=== PATIENT | male | born 1940 | race Two or more races ===

== ENCOUNTER 2016-11-25 11:13 | Emergency (ER) | payer MEDICARE, OTHER ==
[~2016-11-25] VITALS: Ht 160 cm; Wt 59.0 kg
[~2016-11-25 11:13] MED LIST: ACYCLOVIR800 MG ORAL; GABAPENTIN300 MG ORAL; TYLENOL EXTRA500 MG ORAL
[2016-11-25] MEDS ORDERED: COLACE100 MG ORAL (12:34)
[2016-11-25] MEDS ORDERED: PERCOCET 5-3251 EACH ORAL (12:34)
[2016-11-25] MEDS ORDERED: Oxycodone/Acetaminophen 5-325 ORAL ONE (12:45)
[2016-11-25 12:54] VITALS: BP 108/65
[2016-11-25 13:20] VITALS: BP 108/65
--- NOTE | 2016-11-26 14:18 | Emergency Room Report ---
History of Present Illness General Chief Complaint: Lower Back Pain or Injury Source: Patient Present Illness HPI Patient is a 76-year-old male who presented after having increased pain to his right flank. Patient had recent fall. Patient prior history of cancer. He had not been taking any medications recently. Pain had worsened with movement or deep breath. The patient reported falling onto the right side. Allergies: Coded Allergies: CODEINE (Verified Allergy, Unknown, 08/21/16) Patient History Past Medical History: see triage record Reviewed Nursing Documentation: PMH: Agreed, PSxH: Agreed Nursing Documentation-PMH Past Medical History: No History, Except For Hx Hypertension: Yes Hx Cancer: Yes - lymphoma Review of Systems All Other Systems: negative except mentioned in HPI Physical Exam Vital Signs Date Time Temp Pulse Resp B/P Pulse Ox O2 Delivery O2 Flow Rate FiO2 11/25/16 11:22 98.1 76 18 108/65 97 Room Air Sp02 EP Interpretation: reviewed, normal General Appearance: normal inspection, well appearing, no apparent distress, alert, GCS 15 Head: atraumatic ENT: normal ENT inspection, hearing grossly normal, normal voice Neck: normal inspection, full range of motion, supple, no bony tend Respiratory: normal inspection, lungs clear, normal breath sounds, no respiratory distress, no retraction, no wheezing, other - right flank tenderness Cardiovascular #1: regular rate, rhythm, no edema Gastrointestinal: normal inspection, normal bowel sounds, non tender, soft, no guarding, no hernia Genitourinary: no CVA tenderness Musculoskeletal: back normal, normal range of motion Neurologic: normal inspection, alert, responsive, speech normal Psychiatric: normal inspection, judgement/insight normal, mood/affect normal Skin: normal color, no rash, other - bruising to right flank Medical Decision Making Diagnostic Impression: Primary Impression: Closed rib fracture ER Course Patient presented for low back pain.Differential diagnosis included but was not limited to herniated disc, cauda equina syndrome, abdominal aortic aneurysm, perforated ulcer, spinal epidural abscess, spinal stenosis, lumbar fracture, metastatic lesion, pyelonephritis, rib fracture. Patient was given oral Percocet in emergency department. CT of the abdomen pelvis read by radiology showed a right rib fracture without evident pneumothorax or hemothorax. The patient was offered admission and he declined stated he wanted to go home. Patient was given prescription for Percocet. The patient is advised to follow up with primary care doctor in 1-2 days. Patient is advised to return if any worsening condition or if any changes in status that are concerning. Last Vital Signs Date Time Temp Pulse Resp B/P Pulse Ox O2 Delivery O2 Flow Rate FiO2 11/25/16 13:24 98.1 11/25/16 13:20 18 108/65 97 Room Air 11/25/16 11:22 76 Status: improved Disposition: HOME, SELF-CARE Condition: Stable Scripts Docusate Sodium* (COLACE*) 100 Mg Capsule 100 MG ORAL TWICE A DAY, #20 CAP Prov: Nate Harman 11/25/16 Oxycodone/Acetaminophen 5-325* (PERCOCET 5-325 MG TABLET*) 1 Each Tablet 1 TAB ORAL Q6H Y for For Pain, #20 TAB Prov: Nate Harman 11/25/16 Patient Instructions: Rib Fracture Nate Harman Nov 26, 2016 14:18
--- NOTE | 2016-12-14 11:24 | Diagnostic Imaging Report ---
Indication: Fall, right flank pain. History of lymphoma Technique: Spiral acquisitions obtained through the abdomen and pelvis. No oral contrast utilized, per emergency room physician request No IV contrast utilized, per referring physician request.. Multiplanar reconstructions were generated. Total dose length product 462 mGycm. CTDIvol(s) 10 mGy Comparison: None Findings: Displaced fracture of the posterior right 10th rib. The visualized portions of the lung show no evidence of pneumothorax. There is a mild superior endplate compression deformity of the L3 vertebral body. There is an old healed fracture deformity of the left 10th rib. The remainder of the bones are unremarkable. No significant subcutaneous contusion demonstrated. Lack of IV contrast in the setting of trauma severely limits evaluation of the solid organs. The liver, gallbladder, bile ducts, pancreas, spleen, adrenals, kidneys are grossly unremarkable. There is minimal nonspecific bilateral perinephric fat stranding. There is asymmetric lack of renal sinus fat on the right compared to the left. No pelvic mass or adenopathy. No retroperitoneal or mesenteric mass or adenopathy. There is occasional colonic diverticulosis. No evidence of diverticulitis. The appendix is normal except for containing an appendicolith. No small bowel distention. No free or loculated intraperitoneal air or fluid. The distal esophagus, stomach, duodenum are unremarkable. Impression: Positive for acute right 10th rib fracture. No underlying pneumothorax Age indeterminate minimal L2 superior endplate compression fracture deformity. Consider MRI for further evaluation if this is clinically relevant Exam of the solid organs is limited in the absence IV contrast. No definite acute solid organ trauma. Nonspecific bilateral perinephric fat stranding Normal colonic diverticulosis. No evidence of diverticulitis The CT scanner at [facility] is accredited by the [employer] and the scans are performed using protocols designed to limit radiation exposure to as low as reasonably achievable to attain images of sufficient resolution adequate for diagnostic evaluation.
== END 2016-11-25 13:20 | disposition home or self-care (01) ==
LOC: EMR 11:39
DX: S22.31XA Fracture of one rib, right side, initial encounter for closed fracture (principal); W19.XXXA Unspecified fall, initial encounter; Y93.9 Activity, unspecified; Y92.9 Unspecified place or not applicable; I10 Essential (primary) hypertension; Z85.72 Personal history of non-Hodgkin lymphomas; Z88.6 Allergy status to analgesic agent
CPT/HCPCS: 74176; 99284

== ENCOUNTER 2017-05-15 09:07 | Emergency (ER) | payer MEDICARE, OTHER ==
[~2017-05-15] VITALS: Ht 160 cm; Wt 58.1 kg
[~2017-05-15 09:07] MED LIST changes: +COLACE100 MG ORAL; +PERCOCET 5-3251 EACH ORAL
[2017-05-15] MEDS ORDERED: LISINOPRIL5 MG ORAL (09:21)
[2017-05-15] MEDS ORDERED: CELEBREX100 MG ORAL (09:22)
[2017-05-15 09:26] VITALS: BP 148/82
--- NOTE | 2017-05-15 10:05 | Emergency Room Report ---
History of Present Illness General Chief Complaint: Multiple Trauma/Fall Source: Patient, Medical Record Present Illness HPI [id number] walk-in after 3 days ago slipped and fell in shower. Hit back of head. No LOC. Not on ASA, AC Also "stubbed" right 2nd toe Not c/o pain, headache now yesterday said was "very hot, sweating" at home. Didnt want to go to ER both times. Was very hot at home. She placed icepacks under arms. Currently asymptomatic Denies chest pain, SOB, palpitations, abd pain Allergies: Coded Allergies: CODEINE (Verified Allergy, Unknown, 08/21/16) Patient History Past Medical History: HTN Past Surgical History: none Pertinent Family History: none Social History: Reports: smoking Immunizations: UTD Reviewed Nursing Documentation: PMH: Agreed, PSxH: Agreed Nursing Documentation-PMH Past Medical History: No History, Except For Hx Hypertension: Yes Hx Cancer: Yes - lymphoma Review of Systems All Other Systems: negative except mentioned in HPI Physical Exam Vital Signs Date Time Temp Pulse Resp B/P (MAP) Pulse Ox O2 Delivery O2 Flow Rate FiO2 05/15/17 09:17 97.5 70 16 148/82 100 Room Air Sp02 EP Interpretation: reviewed, normal General Appearance: normal inspection, well appearing, no apparent distress, alert, GCS 15, non-toxic Head: normocephalic, atraumatic Eyes: bilateral eye PERRL, bilateral eye EOMI ENT: normal ENT inspection, hearing grossly normal, normal voice Neck: normal inspection, full range of motion, supple, no bony tend Respiratory: normal inspection, lungs clear, normal breath sounds, no rhonchi, no respiratory distress, no retraction, no accessory muscle use, no wheezing, speaking full sentences Cardiovascular #1: regular rate, rhythm, no edema Gastrointestinal: normal inspection, normal bowel sounds, non tender, soft, no guarding, no hernia Genitourinary: no CVA tenderness Musculoskeletal: normal inspection, back normal, normal range of motion, Tiffany' s Sign negative Neurologic: normal inspection, alert, oriented x3, responsive, business investor III-XII nml as tested, motor strength/tone normal, speech normal Psychiatric: normal inspection, judgement/insight normal, mood/affect normal Skin: normal inspection, normal color, no rash Lymphatic: normal inspection Medical Decision Making Diagnostic Impression: Primary Impression: Fall Qualified Codes: W19.XXXA - Unspecified fall, initial encounter Additional Impressions: Head trauma Qualified Codes: S09.90XA - Unspecified injury of head, initial encounter Toe pain, right Syncope Qualified Codes: T67.1XXA - Heat syncope, initial encounter Toe fracture, right Qualified Codes: S92.514A - Nondisplaced fracture of proximal phalanx of right lesser toe(s), initial encounter for closed fracture ER Course Syncope yesterday Was in very hot house. Asymptomatic now. ECG is NSR. No ischemia. Troponin 0 K SLIGHTLY elevated at 5. Normal kidney function H&H stable. No leuks. Fall [address] head negative. Not on ASA, AC Right 2nd toe fracture - hard boot placed Advised Non-weight bearing, Ortho followup Tylenol only DC home Right foot xray 3 views ED review Fracture proximal phalanx of 2nd toe No soft tissue welling. No dislocation EKG Diagnostic Results Rate: normal Rhythm: NSR ST Segments: no acute changes ASA given to the pt in ED: No Rhythm Strip Diag. Results EP Interpretation: yes Rate: 59 Rhythm: NSR, no PVC's Last Vital Signs Date Time Temp Pulse Resp B/P (MAP) Pulse Ox O2 Delivery O2 Flow Rate FiO2 05/15/17 09:26 16 148/82 100 Room Air 05/15/17 09:17 97.5 70 Status: improved Disposition: HOME, SELF-CARE Referrals: ERIC MUNIZ MD (PCP) CLAUDIA RHODES M.D. May 15, 2017 10:05
--- NOTE | 2017-05-15 10:06 | Diagnostic Imaging Report ---
Indications: Head trauma x2 days, head pain Technique: Spiral acquisitions obtained through the brain. Angled axial and coronal 5 x 5 mm slices were reconstructed. Total dose length product 1379 mGycm. CTDI vol(s) 70 mGy. Dose reduction achieved using automated exposure control Comparison: None Findings: There is marked age-related enlargement of ventricles and extra-axial CSF spaces. There is extensive periventricular deep white matter chronic ischemic change. Old lacunar infarcts are seen in the basal ganglia bilaterally. There is an old lacunar infarct within the mari just to the right of midline. No acute hemorrhage or edema. No mass effect nor midline shift. Intact calvarium. The visualized orbits, sinuses, and mastoids are unremarkable. 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
[2017-05-15 10:36] LABS: EOSINOPHILS % (AUTO) 4.8 % (0.0-3.0); LYMPHOCYTES % (AUTO) 17.8 % (20.0-45.0); MEAN CORPUSCULAR HEMOGLOBIN 35.6 PG (27.0-31.0); MEAN CORPUSCULAR HGB CONC 33.4 G/DL (32.0-36.0); MEAN CORPUSCULAR VOLUME 107 FL (80-99); MONOCYTES % (AUTO) 6.7 % (1.0-10.0); NEUTROPHILS % (AUTO) 69.6 % (45.0-75.0); PLATELET COUNT 121 K/UL (150-450); RED BLOOD COUNT 4.05 M/UL (4.70-6.10); RED CELL DISTRIBUTION WIDTH 11.9 % (11.6-14.8)
[2017-05-15 10:50] LABS: ALANINE AMINOTRANSFERASE 10 U/L (3-41); ALBUMIN/GLOBULIN RATIO 1.4 (1.0-2.7); ANION GAP 12 (5-15); ASPARTATE AMINO TRANSFERASE 25 U/L (5-40); CALCIUM 9.6 mg/dL (8.6-10.2); CARBON DIOXIDE 25 mEQ/L (20-30); CHLORIDE 104 mEQ/L (98-107); CREATININE 1.1 mg/dL (0.7-1.2); HEMOLYSIS 88; SODIUM 141 mEQ/L (135-145); TROPONIN I < 0.30 ng/mL (<=0.30)
[2017-05-15 11:00] VITALS: BP 135/72
--- NOTE | 2017-05-15 11:12 | Diagnostic Imaging Report ---
Indication: PAIN Technique: 3 views right foot Comparison: none Findings: There is an oblique fracture of the second proximal phalanx. This is nondisplaced. There is slight lucency and overlying callus formation and cortical thickening is of the proximal shaft of the fifth metacarpal. The bones appear somewhat osteoporotic. There is mild hallux valgus. There is mild hammertoe deformity of the third through fifth digits. Impression: Positive for second proximal phalangeal fracture Evidence of late subacute fracture of the fifth metacarpal Other findings as noted This agrees with the preliminary interpretation provided by the emergency room physician
[2017-05-15] MEDS ORDERED: TYLENOL325 MG ORAL (11:17)
[2017-05-15 11:22] VITALS: BP 135/72
== END 2017-05-15 11:27 | disposition home or self-care (01) ==
LOC: EMR 09:27
DX: S09.8XXA Other specified injuries of head, initial encounter (principal); S92.514A Nondisplaced fracture of proximal phalanx of right lesser toe(s), initial encounter for closed fracture; W01.0XXA Fall on same level from slipping, tripping and stumbling without subsequent striking against object, initial encounter; Y92.002 Bathroom of unspecified non-institutional (private) residence as the place of occurrence of the external cause; R55 Syncope and collapse; R51 Headache; I10 Essential (primary) hypertension; Z88.6 Allergy status to analgesic agent; F17.200 Nicotine dependence, unspecified, uncomplicated; Z85.72 Personal history of non-Hodgkin lymphomas
CPT/HCPCS: 36415; 70450; 80053; 84484; 85025; 93005; 99283

== ENCOUNTER 2019-11-28 16:21 | Emergency (ER) | payer MEDICARE, MEDICAID ==
[~2019-11-28] VITALS: Ht 160 cm; Wt 59.0 kg
[~2019-11-28 16:21] MED LIST changes: +CELEBREX100 MG ORAL; +LISINOPRIL5 MG ORAL; +TYLENOL325 MG ORAL
[2019-11-28 16:45] VITALS: BP 123/67
--- NOTE | 2019-11-28 17:51 | Diagnostic Imaging Report ---
CLINICAL INDICATION:Severe abdominal pain for 4 days. Shortness of breath and cough TECHNIQUE: No oral contrast, reason not stated. No IV contrast, reason not stated. Spiral acquisitions obtained through the chest, abdomen, and pelvis. Multiplanar reconstructions were generated. Total dose length product 300 mGycm. CTDIvol(s) 4.6 mGy. Radiation dose was minimized using automated exposure control COMPARISON: No comparison chest CT. Abdomen pelvis compared to 11/25/2025 FINDINGS Chest: The lungs are somewhat hyperinflated. Numerous subpleural blebs are seen in the periphery of both upper lobes. There are also a few small nonperipheral cystic spaces in the upper lobes. A small cystic space is also seen centrally within the right lower lobe. A small area of peripheral subpleural reticular opacity is seen in the anterior inferior right middle lobe. Focal areas of atelectasis are seen dependently in the bilateral lower lobes. Very faint and focal hazy opacities are seen in the left middle and lower lobes. No dense consolidation. No masses or nodules. There may be trace pleural fluid bilaterally. There is an anterior wall pericardial effusion which measures 11 mm in thickness. This is also evident on the 2017 exam but appears slightly thicker No mediastinal or hilar mass or adenopathy. There is wall thickening of the distal esophagus. There is a small sliding-type hiatal hernia. The ascending thoracic aorta is mildly ectatic but not frankly aneurysmal. The included thyroid is unremarkable. No axillary or chest wall mass or adenopathy. The bones demonstrate multiple old healed left rib fractures. Abdomen pelvis: The appendix is normal. There are colonic diverticula. There is no evidence of diverticulitis. No small bowel distention. No free or loculated intraperitoneal gas or fluid is evident. Fairly dense stool is seen within the colon. Lack of IV contrast limits assessment of the solid organs. The liver, gallbladder, bile ducts, pancreas, spleen, adrenals are unremarkable. The kidneys demonstrate fairly extensive perinephric fat stranding. This appears to been present previously, is slightly more severe currently. The bones demonstrate degenerative spondylosis changes. No retroperitoneal or mesenteric mass or adenopathy. No pelvic mass or adenopathy. There appear to be some small bladder diverticula. These are in the posterior inferior midline. IMPRESSION: Evidence of COPD with small subpleural blebs and a few small central bullae Focal hazy opacities in the left middle and lower lobes, subpleural reticular opacity in the anterior inferior right middle lobe. Nonspecific, but suspect related to the COPD changes Posterior basilar pulmonary dependent atelectatic changes Distal esophageal wall thickening, may indicate esophagitis there is a small hiatal hernia Small pericardial effusion Trace bilateral pleural effusions No definite acute abdominal process Retained dense stool, correlate with any clinical history of constipation Colonic diverticulosis. No evidence of diverticulitis. Bilateral perinephric stranding, presumably chronic as it is similar to the prior study Multiple old healed left rib fracture deformities, also previously demonstrated Bladder diverticula This agrees with the preliminary interpretation provided overnight by [facility]erad[facility] service. The CT scanner at [facility] is accredited by the [employer] and the scans are performed using protocols designed to limit radiation exposure to as low as reasonably achievable to attain images of sufficient resolution adequate for diagnostic evaluation.
[2019-11-28 17:58] LABS: BASOPHILS % (AUTO) 1.4 % (0.0-2.0); EOSINOPHILS % (AUTO) 3.2 % (0.0-3.0); HEMATOCRIT 44.7 % (42.0-52.0); HEMOGLOBIN 14.7 G/DL (14.2-18.0); LYMPHOCYTES % (AUTO) 15.7 % (20.0-45.0); MEAN CORPUSCULAR VOLUME 104 FL (80-99); MONOCYTES % (AUTO) 7.2 % (1.0-10.0); NEUTROPHILS % (AUTO) 72.5 % (45.0-75.0); PLATELET COUNT 135 K/UL (150-450); RED CELL DISTRIBUTION WIDTH 12.4 % (11.6-14.8); WHITE BLOOD COUNT 8.7 K/UL (4.8-10.8)
[2019-11-28 18:06] LABS: ANION GAP 8 mmol/L (5-15); BLOOD UREA NITROGEN 24 mg/dL (7-18); CALCIUM 10.3 MG/DL (8.5-10.1); CARBON DIOXIDE 30 MMOL/L (21-32); CHLORIDE 102 MMOL/L (98-107); CREATININE 1.3 MG/DL (0.55-1.30); POTASSIUM 4.5 MMOL/L (3.5-5.1); SODIUM 140 MMOL/L (136-145)
[2019-11-28 18:17] LABS: ALANINE AMINOTRANSFERASE 14 U/L (12-78); ALBUMIN 3.6 G/DL (3.4-5.0); ALKALINE PHOSPHATASE 69 U/L (46-116); ASPARTATE AMINO TRANSFERASE 19 U/L (15-37); BILIRUBIN,TOTAL 0.3 MG/DL (0.2-1.0)
--- NOTE | 2019-11-28 18:29 | Emergency Room Report ---
History of Present Illness General Chief Complaint: Flu Like Symptoms Present Illness HPI 79-year-old male presents to the emergency department complaining of 10 out of 10 severity abdominal pain with associated nausea and vomiting x4 days. Patient reports he last had his symptoms of abdominal pain yesterday. Patient presents with his whom states that over the last 4 days he is complained multiple times of burning abdominal pain in the upper center of his abdomen. She also is reporting intermittent coughing which is worse at night. Patient denies history of GERD. Patient has history of high blood pressure, BPH, lymphoma and depression. Patient is also a current every day smoker. Patient states that he was just recently seen by his primary care doctor who placed him on antibiotics due to the way his lungs sounded. Patient reports that the antibiotics were not covered completely by his insurance and he was only given a partial prescription. Patient also does not recall the name of the antibiotics. He denies fevers or chills. He denies recent travel. He also reports increased generalized weakness/fatigue. Denies CP, Palpitations, LOC, AMS, dizziness, Changes in Vision, Sensation, paresthesias, or a sudden severe headache. He denies currently having any pain or abdominal tenderness. He denies constipation or diarrhea as well. He denied having blood in the stool or in his vomitus. COVID-19 risk:Contact w/high r: No COVID-19 risk:Travel to affect: No Has patient experienced vasquez: Yes Coronavirus symptoms experienc: Shortness of Breath, Cough Allergies: Coded Allergies: CODEINE (Verified Allergy, Unknown, 08/21/16) Patient History Past Medical History: see triage record, HTN Past Surgical History: none Pertinent Family History: none Reviewed Nursing Documentation: PMH: Agreed Nursing Documentation-PMH Hx Hypertension: Yes Hx Cancer: Yes - lymphoma Review of Systems All Other Systems: negative except mentioned in HPI Physical Exam Vital Signs Date Time Temp Pulse Resp B/P (MAP) Pulse Ox O2 Delivery O2 Flow Rate FiO2 11/28/19 16:26 98.8 85 17 123/67 (85) 95 Room Air Sp02 EP Interpretation: reviewed, normal General Appearance: no apparent distress, alert, GCS 15, non-toxic Head: normocephalic, atraumatic Eyes: bilateral eye normal inspection, bilateral eye PERRL ENT: hearing grossly normal, normal voice Neck: full range of motion Respiratory: chest non-tender, lungs clear, normal breath sounds, speaking full sentences Cardiovascular #1: regular rate, rhythm, no edema Gastrointestinal: normal bowel sounds, non tender, soft Rectal: deferred Genitourinary: normal inspection Musculoskeletal: back normal, normal range of motion, gait/station normal, non- tender Neurologic: alert, motor strength/tone normal, oriented x3, sensory intact, responsive, speech normal Psychiatric: judgement/insight normal Lymphatic: no adenopathy Medical Decision Making PA Attestation Dr. Loza is my supervising Physician whom patient management has been discussed with. Diagnostic Impression: Primary Impression: Pericardial effusion Additional Impressions: Emphysema lung Qualified Codes: J43.9 - Emphysema, unspecified Small pleural effusion Esophagitis ER Course Pt. presents to the ED with s/sx c/w URI in the setting of a local COVID-19 Outbreak. - This PT. was triaged outside the facility in a designated staging area and placed into isolation tent. - Full PPE for airborne/droplet isolation (booties, Gown, doubled nitrile gloves, N95 Mask covered by Surgical mask w. face shield, and hair net) was donned in the designated HCP staging area prior to pt. interaction. 79-year-old male presents to the emergency department complaining of 10 out of 10 severity abdominal pain with associated nausea and vomiting x4 days. Patient reports he last had his symptoms of abdominal pain yesterday. Patient presents with his whom states that over the last 4 days he is complained multiple times of burning abdominal pain in the upper center of his abdomen. She also is reporting intermittent coughing which is worse at night. Patient denies history of GERD. Patient has history of high blood pressure, BPH, lymphoma and depression. Patient is also a current every day smoker. Patient states that he was just recently seen by his primary care doctor who placed him on antibiotics due to the way his lungs sounded. Patient reports that the antibiotics were not covered completely by his insurance and he was only given a partial prescription. Patient also does not recall the name of the antibiotics. He denies fevers or chills. He denies recent travel. He also reports increased generalized weakness/fatigue. Denies CP, Palpitations, LOC, AMS, dizziness, Changes in Vision, Sensation, paresthesias, or a sudden severe headache. He denies currently having any pain or abdominal tenderness. He denies constipation or diarrhea as well. He denied having blood in the stool or in his vomitus. Ddx considered but are not limited to Diverticulitis, acute appy, diarrhea,UC, PUD, GE, pancreatitis, gallstone, esophagitis, GERD, COVID-19, Cardiac Etiology , AR Vital signs: are WNL, pt. is afebrile H&PE are most consistent with suspected GERD however due to patient's age and having several risk factors he will receive cardiac work-up in addition to suspected COVID-19 work up as well. Pt. is currently nontoxic in appearance and in no acute distress. Patient is not exhibiting signs of respiratory distress. ORDERS: COVID-19 --- Hospital is currently out of testing kits due to increased use during ongoing outbreak CBC: Unremarkable CMP: unremarkable other than BUN 24, normal Cr. Troponin: WNL -PRo BNP : 187 WNL -Blood Cultures: Pending -CT Chest abdomen and pelvis without contrast: " Large amount of stool. No bowel obstruction. Pulmonary emphysema. Small pleural effusions. Small pericardial effusion. Small hiatal hernia and esophageal wall thickening which may represent esophagitis." Per official radiology report- Please see report for specific details. ED INTERVENTIONS: -- 1000NS, - Pepcid 20 mg IV Pt. is given copies of his labs and CT results to take to his PCP. He is given strict ED return precautions for worsening or new symptoms. I d/w pt. self- quarantine as his symptoms may also be due to current COVID-19. Pt. verbalized his understanding and agreement with proposed plan. DISCHARGE: At this time pt. is stable for d/c to home. Will provide printed patient care instructions, and any necessary prescriptions. Care plan and follow up instructions have been discussed with the patient prior to discharge. Labs Test 11/28/19 17:20 White Blood Count 8.7 K/UL (4.8-10.8) Red Blood Count 4.30 M/UL (4.70-6.10) Hemoglobin 14.7 G/DL (14.2-18.0) Hematocrit 44.7 % (42.0-52.0) Mean Corpuscular Volume 104 FL (80-99) Mean Corpuscular Hemoglobin 34.3 PG (27.0-31.0) Mean Corpuscular Hemoglobin Concent 32.9 G/DL (32.0-36.0) Red Cell Distribution Width 12.4 % (11.6-14.8) Platelet Count 135 K/UL (150-450) Mean Platelet Volume 7.5 FL (6.5-10.1) Neutrophils (%) (Auto) 72.5 % (45.0-75.0) Lymphocytes (%) (Auto) 15.7 % (20.0-45.0) Monocytes (%) (Auto) 7.2 % (1.0-10.0) Eosinophils (%) (Auto) 3.2 % (0.0-3.0) Basophils (%) (Auto) 1.4 % (0.0-2.0) Sodium Level 140 MMOL/L (136-145) Potassium Level 4.5 MMOL/L (3.5-5.1) Chloride Level 102 MMOL/L (98-107) Carbon Dioxide Level 30 MMOL/L (21-32) Anion Gap 8 mmol/L (5-15) Blood Urea Nitrogen 24 mg/dL (7-18) Creatinine 1.3 MG/DL (0.55-1.30) Estimat Glomerular Filtration Rate 53.5 mL/min (>60) Glucose Level 100 MG/DL (74-106) Calcium Level 10.3 MG/DL (8.5-10.1) Total Bilirubin 0.3 MG/DL (0.2-1.0) Aspartate Amino Transf (AST/SGOT) 19 U/L (15-37) Alanine Aminotransferase (ALT/SGPT) 14 U/L (12-78) Alkaline Phosphatase 69 U/L (46-116) Troponin I 0.000 ng/mL (0.000-0.056) Pro-B-Type Natriuretic Peptide 187 pg/mL (0-125) Total Protein 7.3 G/DL (6.4-8.2) Albumin 3.6 G/DL (3.4-5.0) Globulin 3.7 g/dL Albumin/Globulin Ratio 1.0 (1.0-2.7) EKG Diagnostic Results EP Interpretation: Dr. Loza Rate: normal - 73 bpm Rhythm: NSR ST Segments: no acute changes ASA given to the pt in ED: No PA Scribe Text This Interpretation was scribed by MAGDA Lazar. Chest X-Ray Diagnostic Results Chest X-Ray Diagnostic Results : Chest X-Ray Ordered: Yes # of Views/Limited/Complete: 1 View Indication: Shortness of Breath EP Interpretation: Yes PA Xray: Interpretation reviewed, by supervising MD, and agrees with findings. Interpretation: no consolidation, no effusion, no pneumothorax, no acute cardiopulmonary disease Impression: No acute disease Electronically Signed by: Daphnie Lazar PA-C CT/MRI/US Diagnostic Results CT/MRI/US Diagnostic Results : Imaging Test Ordered: CT Chest, Abdomen and Pelvis without contrast Impression " Large amount of stool. No bowel obstruction. Pulmonary emphysema. Small pleural effusions. Small pericardial effusion. Small hiatal hernia and esophageal wall thickening which may represent esophagitis." Per official radiology report- Please see report for specific details. Last Vital Signs Date Time Temp Pulse Resp B/P (MAP) Pulse Ox O2 Delivery O2 Flow Rate FiO2 11/28/19 16:45 85 17 Room Air 11/28/19 16:45 98.8 123/67 95 Disposition: HOME, SELF-CARE Condition: Stable Scripts Albuterol Sulfate* (ALBUTEROL SULFATE MDI*) 8.5 Gm Hfa.aer.ad 2 PUFF INH Q6H, #1 INH 0 Refills Prov: Daphnie Lazar 11/28/19 D-Methorphan Hb/Prometh Hcl* (PROMETHAZINE-DM SYRUP*) 118 Ml Syrup 5 ML ORAL Q6H PRN for For Cough, #120 ML 0 Refills Prov: Daphnie Lazar 11/28/19 Ranitidine Hcl* (ZANTAC*) 150 Mg Tablet 150 MG ORAL TWICE A DAY for 10 Days, #20 TAB Prov: Daphnie Lazar 11/28/19 Levofloxacin* (LEVAQUIN*) 750 Mg Tablet 750 MG ORAL DAILY for 7 Days, #7 TAB Prov: Daphnie Lazar 11/28/19 Referrals: NON PHYSICIAN (PCP) Patient Instructions: Chronic Obstructive Pulmonary Disease, [id number], Esophagitis, Pericardial Effusion Additional Instructions: Due to having symptoms that are also consistent with COVID 19. You are to self- quarantine for a minimum of 2 weeks. Take medications as directed. Follow up with a Primary Care Provider in 3-5 days, even if your symptoms have resolved. Return sooner to ED if new symptoms occur, or current symptoms become worse. - Please note that this Emergency Department Report was dictated using [email or web address] officer technology software, occasionally this can lead to erroneous entry secondary to interpretation by the dictation equipment. Daphnie Lazar Nov 28, 2019 18:29
[2019-11-28] MEDS ORDERED: LEVAQUIN750 MG ORAL (19:08)
[2019-11-28] MEDS ORDERED: ZANTAC150 MG ORAL (19:08)
[2019-11-28] MEDS ORDERED: PROMETHAZINE-D118 ML ORAL (19:08)
[2019-11-28] MEDS ORDERED: ALBUTEROL SULF8.5 GM INH (19:08)
[2019-11-28 19:12] VITALS: BP 123/67
== END 2019-11-28 19:13 | disposition home or self-care (01) ==
LOC: EMR 16:48
DX: I31.3 Pericardial effusion (noninflammatory) (principal); J43.9 Emphysema, unspecified; K20.9 Esophagitis, unspecified; J90 Pleural effusion, not elsewhere classified; I10 Essential (primary) hypertension; Z85.72 Personal history of non-Hodgkin lymphomas; Z88.5 Allergy status to narcotic agent
CPT/HCPCS: 36415; 71250; 74176; 80053; 83880; 84484; 85025; 86710; 87040; 93005; 96361; 96374; 99284; J7030; S0028

== ENCOUNTER 2020-02-26 12:48 | Outpatient (CLI) | payer MEDICARE, OTHER ==
[~2020-02-26 12:48] MED LIST changes: +ALBUTEROL SULF8.5 GM INH; +LEVAQUIN750 MG ORAL; +PROMETHAZINE-D118 ML ORAL; +ZANTAC150 MG ORAL
--- NOTE | 2020-02-26 20:30 | Consultation ---
DATE OF CONSULTATION: 02/26/2020 CONSULTING PHYSICIAN: Timi Hayes MD. CHIEF COMPLAINT: Referral for screening colonoscopy and also chronic GERD. HISTORY OF PRESENT ILLNESS: This is a very pleasant 79-year-old male without any significant past medical history except for hypertension was referred to us by Dr. Allen for evaluation of screening colonoscopy and also evaluation chronic GERD and endoscopy. PAST MEDICAL HISTORY: Hypertension. PAST SURGICAL HISTORY: None. MEDICATIONS: Lisinopril. FAMILY HISTORY: No family history of GI malignancies. SOCIAL HISTORY: Patient denies any IV drug abuse. Patient currently smokes and drinks socially and also uses marijuana. ALLERGIES: To codeine. REVIEW OF SYSTEMS: A 10-point review of systems was performed and pertinent positives in HPI. PHYSICAL EXAMINATION: GENERAL: A well-developed male, in no acute distress. HEENT: Normocephalic, atraumatic. Sclerae are anicteric. NECK: Supple. No evidence of obvious lymphadenopathy. CARDIOVASCULAR: Regular rate and rhythm. Plus S1, S2. LUNGS: Clear to auscultation bilaterally. ABDOMEN: Positive bowel sounds. Soft, nontender. No rebound. No guarding. No peritoneal sign. EXTREMITIES: No cyanosis. No clubbing. No edema. ASSESSMENT AND PLAN: This is a 79-year-old male with hypertension, referred to us for screening colonoscopy. Also needs endoscopy for evaluation of chronic GERD. The patient was given instruction for colonoscopy and endoscopy. The risks and benefits of procedure was explained to him in detail. We are going to go ahead and schedule him possibly next week. I want to thank, Dr. Loyd Allen, for this kind referral. Timi Hayes M.D. DR: SERA JOB#: [id number] CC: Loyd Allen M.D.; Fax#: [phone]
== END 2020-02-26 14:48 | disposition home or self-care (01) ==
LOC: PAN 12:48
DX: K21.9 Gastro-esophageal reflux disease without esophagitis (principal); I10 Essential (primary) hypertension; F17.200 Nicotine dependence, unspecified, uncomplicated; F12.90 Cannabis use, unspecified, uncomplicated; Z88.6 Allergy status to analgesic agent
CPT/HCPCS: G0463

== ENCOUNTER 2020-03-09 08:40 | Day surgery (SDC) | payer MEDICARE, OTHER ==
[2020-03-09] VITALS (7 sets, daily range): BP systolic 114–144; BP diastolic 68–79
[~2020-03-09] VITALS: Ht 160 cm; Wt 59.4 kg
[~2020-03-09 08:40] MED LIST changes: +LR 1000ml 1,000 ML IVLG SCH
--- NOTE | 2020-03-09 08:58 | Anethesia Preoperative Eval ---
Anesthesia Pre-op PMH/ROS General Date of Evaluation: Mar 09, 2020 Time of Evaluation: 08:56 Anesthesiologist: deborah ASA Score: ASA 3 Mallampati Score Class I : Soft palate, uvula, fauces, pillars visible Class II: Soft palate, uvula, fauces visible Class III: Soft palate, base of uvula visible Class IV: Only hard plate visible Surgeon: nazario Diagnosis: gerd, colon screening Surgical Procedure: egd, colonoscopy Anesthesia History: none Social History: current smoker Family History: no anesthesia problems Allergies: Coded Allergies: CODEINE (Verified Allergy, Unknown, 08/21/16) Medications: see eMAR Patient NPO?: Yes Past Medical History Cardiovascular: Reports: HTN Neurologic/Psychiatric: Reports: other - shingles Hematology/Immune: Reports: other - lymphoma Anesthesia Pre-op A/P Risk Assessment & Plan Assessment: asa3 Plan: mac Status Change Before Surgery: No Pre-Antibiotics Drug: Cassidy Claudio MD Mar 09, 2020 08:58
[2020-03-09] MEDS ORDERED: Midazolam 2mg/2ml Inj IVP PRN (09:00)
[2020-03-09] MEDS ORDERED: fentaNYL 100 mcg/2 mL IV PRN ×2 (09:00→10:15)
[2020-03-09] MEDS ORDERED: DiphenhydrAMINE 50mg/ml Inj IVP PRN (09:00)
[2020-03-09] MEDS ORDERED: Atropine Inj 1mg/10ml Syr IV PRN (09:00)
[2020-03-09] MEDS ORDERED: SERTRALINE HCL25 MG ORAL (09:29)
[2020-03-09] MEDS ORDERED: fentaNYL 100 mcg/2 mL IV ONE (09:40)
[2020-03-09] MEDS ORDERED: LR 1000ml ONE (10:00)
--- NOTE | 2020-03-09 10:00 | Pre-Procedure Note/Attestation ---
Pre-Procedure Note/Attestation Complete Prior to Procedure Planned Procedure: not applicable Procedure Narrative: EGD and colonoscopy Indications for Procedure Pre-Operative Diagnosis: screening colon, GERD Attestation I attest that I discussed the nature of the procedure; its benefits; risks and complications; and alternatives (and the risks and benefits of such alternatives ), prior to the procedure, with the patient (or the patient's legal patient representative). I attest that, if there was a reasonable possibility of needing a blood transfusion, the patient (or the patient's legal patient representative) was given the [facility] standardized written summary, pursuant to the Omar Ivy Blood Safety Act ([place] Health and Safety Code # 1645, as amended). I attest that I re-evaluated the patient just prior to the surgery and that there has been no change in the patient's H&P, except as documented below: Timi Hayes MD Mar 09, 2020 10:00
--- NOTE | 2020-03-09 10:00 | Short Stay Surgery H&P ---
History of Present Illness History of Present Illness Chief Complaint see full consult 02/25 HPI Clyde Mcdaniel is a 79 year old male who was admitted on for Colon Screening, Gerd Patient History Allergies: Coded Allergies: CODEINE (Verified Allergy, Unknown, 08/21/16) Medication History Scheduled Albuterol Sulfate* (Albuterol Sulfate Mdi*), 2 PUFF INH Q6H Lisinopril (Lisinopril*), 5 MG ORAL DAILY, (Reported) Sertraline Hcl* (Sertraline Hcl*), 25 MG ORAL DAILY, (Reported) Discontinued Medications Acetaminophen (Tylenol), 650 MG ORAL Q6H PRN for Prn Pain/Headache/Temp > 101 Discontinued Reason: Pt stopped taking med Celecoxib* (Celebrex*), 100 MG ORAL DAILY, (Reported) Discontinued Reason: MD discontinued med D-Methorphan Hb/Prometh Hcl* (Promethazine-Dm Syrup*), 5 ML ORAL Q6H PRN for For Cough Discontinued Reason: discontinued med Docusate Sodium* (Colace*), 100 MG ORAL TWICE A DAY Discontinued Reason: discontinued med Levofloxacin* (Levaquin*), 750 MG ORAL DAILY Discontinued Reason: discontinued med Oxycodone/Acetaminophen 5-325* (Percocet 5-325 Mg Tablet*), 1 TAB ORAL Q6H PRN for For Pain Discontinued Reason: discontinued med Ranitidine Hcl* (Zantac*), 150 MG ORAL TWICE A DAY Discontinued Reason: MD discontinued med Physical Exam Vital Signs Last Vital Signs Date Time Temp Pulse Resp B/P (MAP) Pulse Ox O2 Delivery O2 Flow Rate FiO2 03/09/20 09:21 97.2 65 18 144/79 98 Room Air Plan Attestation Are the patient's medical conditions optimized for surgery? Timi Hayes MD Mar 09, 2020 10:00
[2020-03-09] MEDS ORDERED: LR 1000ml 1,000 ML IVLG SCH ×2 (10:08)
--- NOTE | 2020-03-09 10:08 | Anethesia Preoperative Eval ---
Anesthesia Pre-op PMH/ROS General Date of Evaluation: Mar 09, 2020 Time of Evaluation: 09:55 Anesthesiologist: Leti ASA Score: ASA 3 Mallampati Score Class I : Soft palate, uvula, fauces, pillars visible Class II: Soft palate, uvula, fauces visible Class III: Soft palate, base of uvula visible Class IV: Only hard plate visible Mallampati Classification: Class II Surgeon: Freddy Diagnosis: Abdominal pain Surgical Procedure: EGD Colonoscopy Anesthesia History: none Social History: current smoker Family History: no anesthesia problems Allergies: Coded Allergies: CODEINE (Verified Allergy, Unknown, 08/21/16) Medications: see eMAR Patient NPO?: Yes Past Medical History Cardiovascular: Reports: HTN; Denies: CAD, RI, valve dz, arrhythmia, other Pulmonary: Reports: COPD; Denies: asthma, COURTNEY, other Gastrointestinal/Genitourinary: Reports: GERD, CRI - Elevated Cr; Denies: ESRD, other Neurologic/Psychiatric: Reports: depression/anxiety; Denies: dementia, CVA, TIA, other Endocrine: Denies: DM, hypothyroidism, steroids, other HEENT: Denies: cataract (L), cataract (R), glaucoma, CHINIK (L), CHINIK (R), other Hematology/Immune: Reports: anemia - mild; Denies: DVT, bleeding disorder, other Musculoskeletal/Integumentary: Reports: OA Other: other - malnourished PMH Narrative: as above PSxH Narrative: See H&P Anesthesia Pre-op Phys. Exam Physician Exam Last Vital Signs Date Time Temp Pulse Resp B/P (MAP) Pulse Ox O2 Delivery O2 Flow Rate FiO2 03/09/20 10:00 Room Air 03/09/20 09:21 97.2 65 18 144/79 98 Constitutional: NAD Neurologic: CN 2-12 intact Cardiovascular: RRR, no M/R/G Respiratory: other - Some wheezing bilaterally Gastrointestinal: S/NT/ND Airway Exam Mallampati Score: Class II MO: limited Neck: stiff ROM: limited Teeth: missing Dentures: no upper, no lower Anesthesia Pre-op A/P Studies Pre-op Studies: EKG - NSR Risk Assessment & Plan Assessment: ASA 3 Plan: MAC Status Change Before Surgery: No Pre-Antibiotics Drug: none Theron Landeros MD Mar 09, 2020 10:08
--- NOTE | 2020-03-09 10:44 | Endoscopy Procedure Note ---
Endoscopy Procedure Note General Indication for Procedure: screening colon, GERD Procedures Performed: EGD, colonoscopy Operative Findings/Diagnosis: gastritis, diverticulosis Specimen: yes Pt Tolerated Procedure Well: Yes Estimated Blood Loss: none Anesthesia Anesthesiologist: nahum Anesthesia: MAC Inserted Devices Implant(s) used?: No Quality Quality of Bowel Preparation: Fair Did scope reach the cecum?: Yes Was there any complications?: No GI Core Measures 50 yrs or older w/o bx or poly: No 10yrs. F/U recommended: Yes If not recommended, why?: Above average risk 18 years or older w/prev. colo: No Timi Hayes MD Mar 09, 2020 10:44
--- NOTE | 2020-03-09 10:48 | Immediate Post-Op Evaluation ---
Immediate Post-Op Evalulation Immediate Post-Op Evalulation Procedure: EGD Colonoscopy Date of Evaluation: Mar 09, 2020 Time of Evaluation: 10:47 IV Fluids: 600 Blood Products: none Estimated Blood Loss: none Urinary Output: none Blood Pressure Systolic: 116 Blood Pressure Diastolic: 68 Pulse Rate: 64 Respiratory Rate: 20 O2 Sat by Pulse Oximetry: 98 Temperature (Fahrenheit): 97.6 Pain Score (1-10): 1 Nausea: No Vomiting: No Complications none Patient Status: awake, patent, none Hydration Status: adequate Theron Landeros MD Mar 09, 2020 10:48
--- NOTE | 2020-03-09 11:02 | 48 Hour Post Anesthesia Eval ---
Post Anesthesia Evaluation Procedure: EGD Colonoscopy Date of Evaluation: Mar 09, 2020 Time of Evaluation: 11:01 Blood Pressure Systolic: 124 0: 76 Pulse Rate: 72 Respiratory Rate: 20 Temperature (Fahrenheit): 97.6 O2 Sat by Pulse Oximetry: 98 Airway: patent Nausea: No Vomiting: No Pain Intensity: 1 Hydration Status: adequate Cardiopulmonary Status: stable Mental Status/LOC: patient returned to baseline Follow-up Care/Observations: n/a Post-Anesthesia Complications: none Follow-up care needed: ready to discharge Theron Landeros MD Mar 09, 2020 11:02
--- NOTE | 2020-03-09 14:00 | Procedure Note ---
DATE OF PROCEDURE: 03/09/2020 SURGEON: Timi Hayes MD. REFERRING PHYSICIAN: Loyd Allen MD. PROCEDURE: Upper endoscopy with biopsy and colonoscopy. ANESTHESIA: Per Dr. Landeros. INSTRUMENT: Olympus adult flexible upper endoscope and colonoscope. INDICATIONS: Screening colonoscopy evaluation, chronic GERD. REASON FOR PROCEDURE: The procedure, risks, benefits, and possible consequences, including hemorrhage, aspiration, perforation and infection, and alternative treatments, were explained to the patient/legal guardian by Dr. Timi Hayes and the patient/legal guardian understood and accepted these risks. PROCEDURE IN DETAIL: After informed consent was obtained and the patient was adequately sedated, Olympus upper endoscope was advanced from mouth into the second portion of the duodenum and retroflexion was performed in the stomach. GE junction was found to be about 37 centimeter from the incisors. No evidence of any esophagitis. In the stomach, there was diffuse gastritis. Random biopsy both from body and antrum was obtained to rule out H. pylori infection. The patient also has evidence of mild duodenitis. No active GI bleeding at this time. At this time, the upper endoscope was retrieved and the patient was turned over for colonoscopy. First, rectal exam was performed, which was positive for internal hemorrhoids. Then, the scope was advanced from the rectum into the cecum documented by appendix orifice, ileocecal valve, and right quadrant palpation. Quality of prep was fair. The patient has some scattered diverticulosis in the left colon, otherwise normal colonoscopy examination. Retroflexion of rectum showed evidence of medium-sized internal hemorrhoids. SUMMARY OF FINDINGS: 1. Gastritis. 2. Duodenitis. 3. Internal hemorrhoids. 4. Fair colonic prep. 5. Diverticulosis, left colon. RECOMMENDATIONS: 1. Follow pathology and treat accordingly. 2. We recommend repeat colonoscopy in 5 years. I want to thank Dr. Loyd Allen for this kind referral. Timi Hayes M.D. DR: CHEO JOB#: [id number] CC: Loyd Allen M.D.; Fax#: [phone]
== END 2020-03-12 13:10 | disposition home or self-care (01) ==
LOC: GAS 08:40
DX: Z12.11 Encounter for screening for malignant neoplasm of colon (principal); K29.50 Unspecified chronic gastritis without bleeding; K21.9 Gastro-esophageal reflux disease without esophagitis; K64.8 Other hemorrhoids; K57.90 Diverticulosis of intestine, part unspecified, without perforation or abscess without bleeding; K29.80 Duodenitis without bleeding; J44.9 Chronic obstructive pulmonary disease, unspecified; I12.9 Hypertensive chronic kidney disease with stage 1 through stage 4 chronic kidney disease, or unspecified chronic kidney disease; N18.9 Chronic kidney disease, unspecified; M19.90 Unspecified osteoarthritis, unspecified site; D64.9 Anemia, unspecified; E46 Unspecified protein-calorie malnutrition; Z79.899 Other long term (current) drug therapy; Z88.6 Allergy status to analgesic agent; Z68.23 Body mass index [BMI] 23.0-23.9, adult
CPT/HCPCS: 43239; 94003; G0121; J2704; J3010; J7120; 94150

== ENCOUNTER 2020-11-18 13:00 | Outpatient (CLI) | payer MEDICARE, OTHER ==
[~2020-11-18 13:00] MED LIST changes: -LR 1000ml 1,000 ML IVLG SCH; +SERTRALINE HCL25 MG ORAL
--- NOTE | 2020-11-23 16:58 | GI Progress Note ---
Assessment/Plan Assessment/Plan SUMMARY OF FINDINGS: 1. Gastritis. 2. Duodenitis. 3. Internal hemorrhoids. 4. Fair colonic prep. 5. Diverticulosis, left colon. HP neg ppi repeat colon in 5 years Subjective Gastrointestinal/Abdominal: Reports: no symptoms Objective General Appearance: alert Cardiovascular: normal rate Respiratory/Chest: lungs clear Abdominal Exam: normal bowel sounds, non tender, soft Extremities: non-tender Timi Hayes MD Nov 23, 2020 16:58
== END 2020-11-18 15:00 | disposition home or self-care (01) ==
LOC: PAN 13:00
DX: R10.9 Unspecified abdominal pain (principal)
CPT/HCPCS: 99212